=== PATIENT | male | born 1945 | race Hispanic/Latino ===

== ENCOUNTER 2022-11-19 18:03 | Emergency (ER) | payer OTHER, MEDICAID ==
[~2022-11-19 18:03] MED LIST: Iopamidol 370 76% 100 ML VIAL ONE
[2022-11-19] MEDS ORDERED: Prochlorperazine 10 MG/2 ML VIAL ONE (18:36)
[2022-11-19] MEDS ORDERED: Fluorescein Opthalmic Strip ONE (18:36)
[2022-11-19] MEDS ORDERED: Proparacaine 0.5% Opth 15 ML BOT ONE (18:37)
[2022-11-19 19:23] LABS: #Basophils 0.1 thou/uL (0.0-0.2); #Eosinphils 0.3 thou/uL (0.0-0.7); #Lymphocytes 1.6 thou/uL (1.20-3.40); #Monocytes 0.7 thou/uL (0.11-0.59); #Neutrophils 4.9 thou/uL (1.40-6.50); %Basophils 0.9 % (0.0-1.0); %Eosinophils 3.7 % (0.0-10.0); %Lymphocytes 21.2 % (21.0-51.0); %Monocytes 9.8 % (0.0-10.0); %Neutrophils 64.3 % (42.0-75.0); Hemoglobin 11.4 g/dL (14.0-18.0); Mean Corpuscular HGB CONC 32.3 g/dL (32.0-36.0); Mean Corpuscular Hemoglobin 32.6 pg (27.0-31.0); Mean Platelet Volume 8.5 fL (7.4-10.4); Platelet Count 203 10x3/uL (130-400); RBC Distribution Width 13.5 % (11.5-14.5); Red Blood Cell (RBC) Count 3.49 mill/uL (4.70-6.10); White Blood Cell (WBC) Count 7.6 10x3/uL (4.8-10.8)
[2022-11-19 19:31] LABS: ALT (SGPT) 37 U/L (8-55); AST (SGOT) 29 U/L (5-34); Albumin 4.2 g/dL (3.4-4.8); Alkaline Phosphatase 110 U/L (40-110); Anion Gap 19 mmol/L (10-20); BUN (Urea Nitrogen) 20 mg/dL (8.4-25.7); Bilirubin, Total 0.5 mg/dL (0.2-1.2); Calc. Creatinine Clearance 0 mL/min (70-130); Calcium 9.4 mg/dL (7.8-10.44); Carbon Dioxide 23 mmol/L (23-31); Chloride 93 mmol/L (98-107); Estimated GFR 9; Globulin 5.1 g/dL (2.4-3.5); Glucose 127 mg/dL (83-110); Potassium 4.3 mmol/L (3.5-5.1); Protein, Total 9.3 g/dL (5.8-8.1); Sodium 131 mmol/L (136-145)
[2022-11-19 19:56] LABS: CKMB 5.8 ng/mL (0-6.6)
[2022-11-19] MEDS ORDERED: fentaNYL 50 mcg/mL 1 mL Vial ONE (21:48)
== END 2022-11-20 03:22 | disposition home or self-care (01) ==
LOC: ERS 18:03
DX: S12.500A Unspecified displaced fracture of sixth cervical vertebra, initial encounter for closed fracture (principal); S05.01XA Injury of conjunctiva and corneal abrasion without foreign body, right eye, initial encounter; I10 Essential (primary) hypertension; E78.5 Hyperlipidemia, unspecified; E11.9 Type 2 diabetes mellitus without complications; V89.2XXA Person injured in unspecified motor-vehicle accident, traffic, initial encounter
CPT/HCPCS: 70450; 70486; 71260; 72125; 74177; 80053; 82553; 83605; 83880; 84484; 85025; 93005; 96374; G0390; J0780; J3010; Q9967